=== PATIENT | female | born 1930 | race Caucasian/White ===

== ENCOUNTER 2017-09-20 06:59 | Day surgery (SDC) | payer OTHER ==
[~2017-09-20] VITALS: Ht 162.6 cm; Wt 77.1 kg
[~2017-09-20 06:59] MED LIST: ARICEPT10 MG PO; Aricept PO; Ascorbic Acid,Ester- PO; Ativan PO; COUMADIN,JANTOVE1 MG PO; COUMADIN4 MG PO; CYANOCOBALAM1000 MCG PO; Dulcolax PO; FISH OIL 1,0001 EA10 PO; Feosol PO; Folvite PO; Glucophage PO; Keflex PO; LIDODERM 5% P1 PATCH TD; LORAZEPAM0.5 MG PO; MARTINIC1 EACH PO; MEMANTINE HCL10 MG PO; METAMUCIL PACK3.4 GM PO; METFORMIN HCL500 MG PO; MIRALAX, GLYCOL1 PK1 PO; MIRALAX255 GM PO; Miralax, Glycolax PO; NEXIUM40 MG PO; OMEPRAZOLE20 MG PO; PRAVACHOL20 MG PO; PROBIOTIC1 EAC1 PO; Senokot S,Pericolace PO; TYLENOL REGULA325 MG PO; Theragran PO; VITAMIN D2000 INTUN PO; VITAMIN D31000 UNI2 PO; Vicodin,Norco 5/325 PO
[2017-09-20 07:44] LABS: INTER. NORMALIZED RATIO 1.3; PROTHROMBIN TIME 14.8 SEC (10.2-12.9)
[2017-09-20 08:02] VITALS: BP 132/87
[2017-09-20 10:14] LABS: POINT-OF-CARE METER ID UU13113675
[2017-09-20 10:40] VITALS: BP 125/74
[2017-09-20 11:10] VITALS: BP 130/72
== END 2017-09-20 11:20 | disposition home or self-care (01) ==
LOC: SDC 06:59
PROVIDERS: Surgery
PROC: 0JB40ZZ Excision of Right Neck Subcutaneous Tissue and Fascia, Open Approach (ICD-10-PCS; principal; 2017-09-20)
DX: D17.0 Benign lipomatous neoplasm of skin and subcutaneous tissue of head, face and neck (principal); I48.2 Chronic atrial fibrillation; E11.22 Type 2 diabetes mellitus with diabetic chronic kidney disease; N18.3 Chronic kidney disease, stage 3 (moderate); E78.00 Pure hypercholesterolemia, unspecified; G30.1 Alzheimer's disease with late onset; F02.80 Dementia in other diseases classified elsewhere, unspecified severity, without behavioral disturbance, psychotic disturbance, mood disturbance, and anxiety; Z87.891 Personal history of nicotine dependence; Z85.3 Personal history of malignant neoplasm of breast; Z79.01 Long term (current) use of anticoagulants; Z79.84 Long term (current) use of oral hypoglycemic drugs
CPT/HCPCS: 82948; 85610; 88304; J0690; J3010